=== PATIENT | female | born 1950 | race Caucasian/White ===

== ENCOUNTER → 2017-03-15 | Outpatient (CLI) | payer MEDICARE, OTHER | END | disposition home or self-care (01) | LOC: CFH 12:33 | PROVIDERS: ATTEND Family Medicine | DX: Z12.31 Encounter for screening mammogram for malignant neoplasm of breast (principal) | CPT/HCPCS: G0202 ==

== ENCOUNTER → 2018-03-16 | Outpatient (CLI) | payer MEDICARE, OTHER | END | disposition home or self-care (01) | LOC: CFH 08:55 | PROVIDERS: ATTEND Family Medicine | DX: Z12.31 Encounter for screening mammogram for malignant neoplasm of breast (principal) | CPT/HCPCS: 77067 ==

== ENCOUNTER → 2019-06-15 | Outpatient (CLI) | payer MEDICARE, OTHER | END | disposition home or self-care (01) | LOC: CFH 14:15 | PROVIDERS: ATTEND Family Medicine | DX: Z12.31 Encounter for screening mammogram for malignant neoplasm of breast (principal) | CPT/HCPCS: 77067 ==

== ENCOUNTER → 2020-12-09 | Outpatient (CLI) | payer MEDICARE, OTHER | END | disposition home or self-care (01) | LOC: CFH 06:57 | PROVIDERS: ATTEND Family Medicine | DX: Z12.31 Encounter for screening mammogram for malignant neoplasm of breast (principal) | CPT/HCPCS: 77067 ==

== ENCOUNTER 2021-03-17 07:37 | Outpatient (CLI) | payer MEDICARE, OTHER ==
[2021-03-17] MEDS ORDERED: MELO15TA24 PO (08:16)
[2021-03-17] MEDS ORDERED: DONE5TAB7 PO (08:16)
[2021-03-17] MEDS ORDERED: CALC-534 PO (08:16)
[2021-03-17] MEDS ORDERED: PARO10TA3 PO (08:16)
[2021-03-17] MEDS ORDERED: [UNRECOGNIZED DRUG - OTHER] PO (08:16)
[2021-03-17 08:31] LABS: BASOPHILS % (AUTO) 1 % (0-1); EOSINOPHILS % (AUTO) 3 % (1-7); LYMPHOCYTES % (AUTO) 30 % (22-44); MEAN CORPUSCULAR HEMOGLOBIN 30.4 pg (27.0-34.8); MEAN CORPUSCULAR HGB CONC 33.7 g/dL (32.4-35.8); MEAN PLATELET VOLUME 8.7 fL (7.4-10.4); MONOCYTES % (AUTO) 16 % (2-9); NEUTROPHILS % (AUTO) 51 % (42-75); PLATELET COUNT 190 x10^3/uL (130-400); RED BLOOD COUNT 4.27 x10^6/uL (3.82-5.3)
[2021-03-17 08:44] LABS: ALANINE AMINOTRANSFERASE 30 U/L (12-78); ALBUMIN 3.7 g/dL (3.4-5.0); ANION GAP 4 mmol/L (5-15); CALCIUM 9.9 mg/dL (8.5-10.1); CHLORIDE 106 mmol/L (98-107); CREATININE 0.74 mg/dL (0.55-1.02)
[2021-03-17 08:47] LABS: ALKALINE PHOSPHATASE 94 U/L (45-117); BILIRUBIN,TOTAL 0.5 mg/dL (0.2-1.0); TOTAL PROTEIN 7.7 g/dL (6.4-8.2)
== END 2021-03-17 23:59 | disposition home or self-care (01) ==
LOC: STAR 07:37
PROVIDERS: ATTEND Orthopaedic Surgery
DX: Z01.818 Encounter for other preprocedural examination (principal); M16.11 Unilateral primary osteoarthritis, right hip; R00.1 Bradycardia, unspecified
CPT/HCPCS: 36415; 80053; 85025; 87081; 93005

== ENCOUNTER 2021-03-26 08:11 | Observation (INO) | payer MEDICARE, OTHER ==
[~2021-03-26] VITALS: Ht 162.6 cm; Wt 65.0 kg
[~2021-03-26 08:11] MED LIST: CALC-534 PO; DONE5TAB7 PO; EPINEPHRINE 1 MG/ML, 1ML ONE; KETOROLAC 60 MG/2 ML ONE; MELO15TA24 PO; PARO10TA3 PO; ROPIvacaine/PF 0.2%, 20 ML ONE; SODIUM CHLORIDE 0.9% 50 ML ONE; TRANEXAMIC ACID 100 MG/ML, 10ML ONE; VANCOMYCIN 1,000 MG ONE; [UNRECOGNIZED DRUG - OTHER] PO
[2021-03-26] MEDS ORDERED: CHLORHEXIDINE 15 ML UDC PO ONE (09:30)
[2021-03-26] MEDS ORDERED: LACTATED RINGERS 1,000 ML IV SCH (09:30)
[2021-03-26] MEDS ORDERED: CHLORHEXIDINE 15 ML UDC ONE (09:59)
[2021-03-26] MEDS ORDERED: FENTANYL PF 250 MCG/5ML ONE (10:01)
[2021-03-26] MEDS ORDERED: MIDAZOLAM 1 MG/ML, 2ML ONE (10:01)
[2021-03-26] MEDS ORDERED: HYDROmorphone 1 MG/ML, 1ML INJ IVPush PRN (11:00)
[2021-03-26] MEDS ORDERED: ONDANSETRON 4 MG TABLET PO PRN (11:00)
[2021-03-26] MEDS ORDERED: TRANEXAMIC ACID 1,000 MG in SODIUM CHLORIDE 0.9% 100 ML IVPB ONE (11:00)
[2021-03-26] MEDS ORDERED: PROMETHAZINE 25 MG/ML, 1ML IM PRN (11:00)
[2021-03-26] MEDS ORDERED: DIAZEPAM 5 MG TABLET PO PRN (11:00)
[2021-03-26] MEDS ORDERED: DIPHENHYDRAMINE 50 MG CAPSULE PO PRN (11:00)
[2021-03-26] MEDS ORDERED: OXYcodone 5 MG/5 ML ORAL.SOL UDC PO PRN ×2 (11:00→12:00)
[2021-03-26] MEDS ORDERED: CEFAZOLIN PMX 1GM/50ML 50 ML IVPB SCH (11:00)
[2021-03-26] MEDS ORDERED: ONDANSETRON 2MG/ML, 2ML IVPush PRN (12:00)
[2021-03-26] MEDS ORDERED: METOCLOPRAMIDE 5 MG/ML, 2ML IV PRN (12:00)
[2021-03-26] MEDS ORDERED: DIAZEPAM 5 MG/ML, 2ML IV PRN ×2 (12:00)
[2021-03-26] MEDS ORDERED: FENTANYL PF 100 MCG/2ML IV PRN (12:00)
[2021-03-26] MEDS ORDERED: KETOROLAC 30 MG/1 ML IV PRN (12:00)
[2021-03-26] MEDS ORDERED: MEPERIDINE/PF 25MG/0.5ML IVPush PRN (12:00)
[2021-03-26] MEDS ORDERED: hydrALAzine 20 MG/ML, 1ML IV PRN (12:00)
[2021-03-26] MEDS ORDERED: LABETALOL 5MG/ML, 20ML IV PRN (12:00)
[2021-03-26] MEDS ORDERED: HYDROmorphone 1 MG/ML, 1ML INJ IV PRN (12:00)
[2021-03-26] MEDS ORDERED: ALBUTEROL SULFATE 2.5 MG/3 ML NPPB PRN (12:00)
[2021-03-26] MEDS ORDERED: PROMETHAZINE 25 MG/ML, 1ML IV PRN (12:00)
[2021-03-26] MEDS ORDERED: HYDROmorphone 2 MG/ML, 1ML ONE (14:15)
[2021-03-26] MEDS: KETOROLAC 30 MG/1 ML IV SCH ×2 (14:18→22:43)
[2021-03-26] MEDS ORDERED: PROPOFOL 10 MG/ML, 50ML ONE (15:31)
[2021-03-26] MEDS ORDERED: ONDANSETRON 2MG/ML, 2ML ONE (15:31)
[2021-03-26] MEDS ORDERED: EPHEDRINE 50 MG/ML, 1ML ONE (15:31)
[2021-03-26] MEDS ORDERED: DEXAMETHASONE 4 MG/ML, 1ML ONE (15:31)
[2021-03-26] MEDS ORDERED: CEFAZOLIN 1,000 MG ONE (15:31)
[2021-03-26] MEDS: OXYcodone/APAP 5/325MG TABLET PO PRN (19:14)
[2021-03-26] MEDS: CEFAZOLIN PMX 1GM/50ML 50 ML IVPB SCH (19:49)
[2021-03-26] MEDS: DOCUSATE 100 MG CAPSULE PO SCH (20:43)
[2021-03-26 20:47] VITALS: BP 124/70
[2021-03-27 00:08] VITALS: BP 95/53
[2021-03-27] MEDS: OXYcodone/APAP 5/325MG TABLET PO PRN ×4 (00:09→12:56)
[2021-03-27] MEDS: CEFAZOLIN PMX 1GM/50ML 50 ML IVPB SCH (04:04)
[2021-03-27 04:08] VITALS: BP 111/65
[2021-03-27] MEDS: KETOROLAC 30 MG/1 ML IV SCH (05:56)
[2021-03-27] MEDS ORDERED: ASPIRIN 81 MG TABLET EC PO SCH ×2 (06:00→18:00)
[2021-03-27 08:20] VITALS: BP 120/64
[2021-03-27] MEDS: DOCUSATE 100 MG CAPSULE PO SCH (08:34)
[2021-03-27] MEDS ORDERED: DONEPEZIL 5 MG TABLET PO SCH (09:00)
[2021-03-27] MEDS ORDERED: PAROXETINE 10 MG TABLET PO SCH (09:00)
[2021-03-27 10:27] VITALS: BP 95/57
== END 2021-03-27 13:05 | disposition home or self-care (01) ==
LOC: INTOOBSV 08:34 → ORIP 08:34 → 4NE 13:53
PROVIDERS: ADMIT Orthopaedic Surgery; ATTEND Orthopaedic Surgery
DX: M16.11 Unilateral primary osteoarthritis, right hip (principal); F03.90 Unspecified dementia, unspecified severity, without behavioral disturbance, psychotic disturbance, mood disturbance, and anxiety; Z96.641 Presence of right artificial hip joint; Z79.899 Other long term (current) drug therapy
CPT/HCPCS: 27130; 36415; 72170; 86850; 86900; 96365; 96366; 96375; 96376; 97110; 97161; C1713; C1776; G0378; J0171; J0690; J1100; J1170; J1885; J2250; J2405; J2704; J2795; J3010; J7120; Q0162; J3370